=== PATIENT | male | born 1950 | race Caucasian/White ===

== ENCOUNTER 2021-11-16 08:13 | Day surgery (SDC) | payer MEDICARE, SELFPAY ==
[2021-11-03 14:37] VITALS: BMI 30.2
[2021-11-16 08:40] VITALS: BP 127/82; PULSE 57; RESP 18; TEMP 36.4; O2SAT 99
[2021-11-16] MEDS: OFLOXACIN 0.3% OPHTH SOLN 5 ML BTL 1 DROP AFFCTD EYE (08:55)
[2021-11-16] MEDS: TETRACAINE HCL 0.5% OPHTH SOLN 4 ML BTL 1 DROP AFFCTD EYE ×3 (08:55→09:05)
--- NOTE | 2021-11-16 08:55 | WPDHPUPDATE1 ---
History and Physical Update Update Date/Time: 11/16/21 08:55 History and Physical has been reviewed, including an updated exam of the patient. There are NO changes in the patient's condition. Risks, benefits, and alternatives have been discussed and questions answered. Patient agrees to proceed with procedure.
[2021-11-16] MEDS: LIDOCAINE HCL 2% JELLY 5 ML TUBE 1 APPLIC AFFCTD EYE (09:05)
[2021-11-16 09:18] VITALS: BMI 19.5
[2021-11-16 11:14] VITALS: BP 126/79; PULSE 57; RESP 16; O2SAT 98
[2021-11-16] MEDS: acetaZOLAMIDE TAB 250 MG TABLET PO (11:25)
--- NOTE | 2021-11-16 11:41 | WPDANESPN ---
Anes - Prog Note Post-Op Date/Time: 11/16/21 11:41 Cardiovascular status: normal Respiratory status: normal Airway patency: baseline Mental status: baseline Post-Op hydration status: normal Vital Signs: Last Vital Signs Temp 36.4 C L 11/16/21 08:40 Pulse 57 L 11/16/21 11:14 Resp 16 11/16/21 11:14 BP 126/79 11/16/21 11:14 Pulse Ox 98 11/16/21 11:14 O2 Del Method Room Air 11/16/21 11:14 Pain Score (VAS): 0 Patient Feedback: Patient satisfied with anesthetic care.
--- NOTE | 2021-11-16 12:16 | W.PM.PROC2 ---
Procedure Note - Detailed Date of Procedure 11/16/21 Pre-op Diagnosis Cataract Left eye Post-op Diagnosis Same Procedure Performed Cataract Extraction (by Phacoemulsification) and lntraocular Lens Implant Surgeon Jim Naidu MD Description of Procedure The eye was anesthetized with topical 0.75% bupivacaine. After intravenous sedation and placement of monitors, the patient was prepped and draped in the usual sterile manner. A lid speculum was placed. A paracentesis was made, and preservative free 1% lidocaine was instilled in the anterior chamber. The anterior chamber was then filled with Viscoat viscoelastic. A guero keratome was used to create the wound. Continuous tear anterior capsulotomy was performed. The lens was hydro dissected before being removed with phacoemulsification. The remaining lenticular cortex was removed with aspiration. The capsular bag was polished and filled with viscoelastic material. An intraocular lens was chosen, inspected, irrigated and placed within the capsular bag where it was seen to be centered and stable. The viscoelastic material was aspirated. The wound was closed and found to be watertight. Ciloxan drops were placed in the eye. The speculum was removed. A Johnson shield was applied. The patient tolerated the procedure well and left the operating room in satisfactory condition. Implants See chart Complications None Condition Stable Disposition Same day
== END 2021-11-16 11:42 | disposition home or self-care (01) ==
PROVIDERS: PCP Internal Medicine
PROC: (CPT 66983; principal; 2021-11-16 10:00)
DX: H25.12 Age-related nuclear cataract, left eye (principal)
CPT/HCPCS: 66984